=== PATIENT | female | born 1985 | race Caucasian/White ===

== ENCOUNTER 2020-01-04 12:07 | Emergency (ER) | payer OTHER ==
[~2020-01-04] VITALS: Ht 165.1 cm; Wt 68.8 kg
[2020-01-04 13:40] LABS: BASO # 0.1 10^3/uL (0.0-0.2); BASO % 0.8 % (0.0-1.0); EOS # 0.2 10^3/uL (0.0-0.5); EOS % 2.1 % (0.0-3.0); HEMATOCRIT 40.2 % (36.0-47.0); HEMOGLOBIN 14.2 g/dl (12.0-15.5); LYMPH # 2.6 10^3/uL (1.5-5.0); LYMPH % 25.6 % (24.0-44.0); MEAN CORPUSCULAR HEMOGLOBIN 30.4 pg (27.0-33.0); MEAN CORPUSCULAR HGB CONC 35.3 g/dl (32.0-36.5); MEAN CORPUSCULAR VOLUME 86.1 fl (80.0-96.0); MONO # 0.5 10^3/uL (0.0-0.8); MONO % 4.6 % (0.0-5.0); NEUTROPHILS # 6.8 10^3/uL (1.5-8.5); NEUTROPHILS % 66.7 % (36.0-66.0); PLATELET COUNT, AUTOMATED 236 10^3/uL (150-450); RED BLOOD COUNT 4.67 10^6/uL (4.00-5.40); WHITE BLOOD COUNT 10.1 10^3/uL (4.0-10.0)
[2020-01-04 13:58] LABS: ALBUMIN 3.8 GM/DL (3.2-5.2); ALT/SGPT 13 U/L (12-78); BILIRUBIN,DIRECT 0.2 MG/DL (0.0-0.2); BILIRUBIN,TOTAL 0.8 MG/DL (0.2-1.0); BLOOD UREA NITROGEN 14 MG/DL (7-18); CALCIUM LEVEL 9.2 MG/DL (8.5-10.1); CARBON DIOXIDE LEVEL 28 MEQ/L (21-32); CHLORIDE LEVEL 107 MEQ/L (98-107); CREATININE FOR GFR 0.59 MG/DL (0.55-1.30); GLOMERULAR FILTRATION RATE > 60.0 (>60); GLUCOSE, FASTING 77 MG/DL (70-100); POTASSIUM SERUM 3.8 MEQ/L (3.5-5.1); SODIUM LEVEL 140 MEQ/L (136-145); TOTAL PROTEIN 7.1 GM/DL (6.4-8.2)
[2020-01-04 14:05] LABS: HCG, SERUM QUALITATIVE NEGATIVE (NEGATIVE)
--- NOTE | 2020-01-04 15:17 | REPVR ---
PROCEDURE INFORMATION: Exam: CT Abdomen And Pelvis Without Contrast Exam date and time: 01/04/2020 2:32 PM Age: 34 years old Clinical indication: Abdominal pain; Flank; Right; Additional info: Right flank pain TECHNIQUE: Imaging protocol: Computed tomography of the abdomen and pelvis without contrast. Radiation optimization: All CT scans at this facility use at least one of these dose optimization techniques: automated exposure control; mA and/or kV adjustment per patient size (includes targeted exams where dose is matched to clinical indication); or iterative reconstruction. COMPARISON: No relevant prior studies available. FINDINGS: Lungs: Clear appearing lung bases. Heart: The heart is normal in size. Liver: Normal liver. Gallbladder and bile ducts: There are a few calcified gallstones dependent portion of the gallbladder near the neck of the gallbladder. Common bile duct appears normal in size. Pancreas: Normal pancreas. Spleen: Normal spleen. Adrenals: Normal adrenal glands. Kidneys and ureters: There is a 3 mm calcified stone lower pole of the left kidney/nonobstructive. There is no evidence of hydronephrosis. Margins of the right and left kidney appear smooth. There is no evidence of a stone in the right or left ureter. Stomach and bowel: Unremarkable. No obstruction. No mucosal thickening. Intraperitoneal space: There is no evidence of pneumoperitoneum. There is no evidence of mesenteric mass. There is no evidence of free fluid in the abdomen or the pelvis. Vasculature: The aorta is normal in size. There is a calcification left pelvis probably a phlebolith. Lymph nodes: Unremarkable. No enlarged lymph nodes. Bladder: Normal appearing urinary bladder. Reproductive: The uterus measures 10 cm in length by 5.5 cm in AP dimension by 8 cm in transverse dimension. The uterus is bulbous and this may be secondary to fibroid changes. The endometrium appears smooth and mildly thickened at 1.4 cm probably secretory type endometrium. The right ovary measures 4 cm in length by 2.6 cm in thickness. The left ovary measures 4 cm in length by 2.5 cm in thickness. The cecum is in the right pelvis and the appendix appears within the range of normal. Bones/joints: There is no evidence of bony abnormality. IMPRESSION: 1. 3 mm calcified stone lower pole left kidney. 2. The uterus is bulbous which may be the result of fibroid changes. There are follicular cysts of both ovaries. 3. There are a few calcified gallstones in the dependent portion near the neck of the gallbladder. Electronically signed by: Drake Ko On 01/04/2020 15:18:00 PM
[2020-01-04 16:18] VITALS: BP 111/69
== END 2020-01-04 16:21 | disposition home or self-care (01) ==
LOC: M ED 12:07
DX: K80.20 Calculus of gallbladder without cholecystitis without obstruction (principal); D25.9 Leiomyoma of uterus, unspecified; N20.0 Calculus of kidney; N83.209 Unspecified ovarian cyst, unspecified side

== ENCOUNTER → 2021-03-06 | Outpatient (CLI) | payer OTHER ==
[2021-03-06 18:10] LABS: BASO # 0.1 10^3/uL (0.0-0.2); EOS # 0.1 10^3/uL (0.0-0.5); EOS % 1.5 % (0.0-3.0); HEMATOCRIT 40.8 % (36.0-47.0); HEMOGLOBIN 14.3 g/dl (12.0-15.5); LYMPH # 1.9 10^3/uL (1.5-5.0); LYMPH % 24.3 % (24.0-44.0); MEAN CORPUSCULAR HEMOGLOBIN 29.9 pg (27.0-33.0); MEAN CORPUSCULAR VOLUME 85.2 fl (80.0-96.0); MONO # 0.5 10^3/uL (0.0-0.8); NEUTROPHILS # 5.2 10^3/uL (1.5-8.5); NEUTROPHILS % 66.9 % (36.0-66.0); PLATELET COUNT, AUTOMATED 269 10^3/uL (150-450); RED BLOOD COUNT 4.79 10^6/uL (4.00-5.40); WHITE BLOOD COUNT 7.8 10^3/uL (4.0-10.0)
[2021-03-06 18:40] LABS: ERYTHROCYTE SEDIMENTATION RATE 6 mm/hr (0-20)
[2021-03-06 18:50] LABS: ALBUMIN 4.3 GM/DL (3.2-5.2); ALT/SGPT 17 U/L (12-78); BILIRUBIN,TOTAL 0.9 MG/DL (0.2-1.0); BLOOD UREA NITROGEN 11 MG/DL (7-18); CALCIUM LEVEL 9.5 MG/DL (8.5-10.1); CARBON DIOXIDE LEVEL 31 MEQ/L (21-32); CHLORIDE LEVEL 107 MEQ/L (98-107); CREATININE FOR GFR 0.76 MG/DL (0.55-1.30); FREE T4 1.03 NG/DL (0.76-1.46); FREE THYROXINE INDEX 3.3 % (1.3-4.8); GLOMERULAR FILTRATION RATE > 60.0 (>60); GLUCOSE, FASTING 83 MG/DL (70-100); POTASSIUM SERUM 3.8 MEQ/L (3.5-5.1); RHEUMATOID FACTOR QUANT < 10.0 IU/ML (<15.0); SODIUM LEVEL 139 MEQ/L (136-145); T UPTAKE 32 % (30-39); THYROID STIMULATING HORMONE 0.803 uIU/ML (0.358-3.740); THYROXINE (T4) 10.2 UG/DL (4.5-12.0); TOTAL PROTEIN 7.9 GM/DL (6.4-8.2)
[2021-03-06 18:51] LABS: VITAMIN B12 LEVEL 348 PG/ML
== END ==
LOC: M PLALAB 15:12
PROVIDERS: ATTEND Psychiatry & Neurology Neurology
DX: R51.9 Headache, unspecified (principal); E07.9 Disorder of thyroid, unspecified; R41.3 Other amnesia

== ENCOUNTER 2023-07-01 17:59 | Emergency (ER) | payer BC, OTHER ==
[~2023-07-01] VITALS: Ht 165.1 cm; Wt 76.6 kg
[2023-07-01 18:56] LABS: BASO # 0.1 10^3/uL (0.0-0.2); BASO % 1.2 % (0.0-1.0); EOS # 0.2 10^3/uL (0.0-0.5); EOS % 2.2 % (0.0-3.0); HEMATOCRIT 39.8 % (36.0-47.0); HEMOGLOBIN 13.7 g/dl (12.0-15.5); LYMPH % 35.5 % (24.0-44.0); MEAN CORPUSCULAR HEMOGLOBIN 29.2 pg (27.0-33.0); MEAN CORPUSCULAR HGB CONC 34.4 g/dl (32.0-36.5); MEAN CORPUSCULAR VOLUME 84.9 fl (80.0-96.0); MONO # 0.6 10^3/uL (0.0-0.8); MONO % 6.9 % (2.0-8.0); NEUTROPHILS # 4.5 10^3/uL (1.5-8.5); NEUTROPHILS % 54.1 % (36.0-66.0); PLATELET COUNT, AUTOMATED 264 10^3/uL (150-450); RED BLOOD COUNT 4.69 10^6/uL (4.00-5.40); WHITE BLOOD COUNT 8.3 10^3/uL (4.0-10.0)
[2023-07-01 19:17] LABS: CK-MB VALUE MASS < 1.0 NG/ML (<3.6)
[2023-07-01 19:19] LABS: BLOOD UREA NITROGEN 12 MG/DL (9-23); CALCIUM LEVEL 8.9 MG/DL (8.5-10.1); CARBON DIOXIDE LEVEL 28 MMOL/L (20-31); CHLORIDE LEVEL 109 MMOL/L (98-107); CPK CREATINE PHOSPHOKINASE 53 U/L (34-145); CREATININE FOR GFR 0.67 MG/DL (0.55-1.30); GLOMERULAR FILTRATION RATE > 60.0 (>60); GLUCOSE, FASTING 86 MG/DL (60-100); MB/CK RELATIVE INDEX 1.88 (< OR =4); SODIUM LEVEL 140 MMOL/L (136-145)
[2023-07-01 21:27] LABS: CK-MB VALUE MASS < 1.0 NG/ML (<3.6)
[2023-07-01 21:28] LABS: CPK CREATINE PHOSPHOKINASE 57 U/L (34-145); MB/CK RELATIVE INDEX 1.75 (< OR =4)
[2023-07-01] MEDS ORDERED: ISOVUE-370 76% 100ML VIAL As Ordered ONE (21:50)
[2023-07-01 21:58] LABS: HCG, SERUM QUALITATIVE NEGATIVE (NEGATIVE)
[2023-07-01 22:54] VITALS: BP 118/69; TEMP 97.9; O2SAT 99
== END 2023-07-01 22:56 | disposition home or self-care (01) ==
LOC: M ED 17:59
DX: R07.89 Other chest pain (principal)
CPT/HCPCS: 71046; 71275; 80048; 82550; 82553; 84484; 84703; 85025; 93005; 93041; 94760; 99284; Q9967